=== PATIENT | male | born 1985 | race African-American/Black ===

== ENCOUNTER 2019-06-06 04:27 | Emergency (ER) | payer OTHER ==
[2019-06-06 05:02] LABS: AMP/METHAMP POSITIVE (Negative); BARBITURATES Negative (Negative); BENZODIAZEPINES Negative (Negative); COCAINE Negative (Negative); METHADONE Negative (Negative); OPIATES Negative (Negative); PCP Negative (Negative)
== END 2019-06-06 05:14 | disposition left against medical advice (07) ==
LOC: ER 04:27
PROVIDERS: Emergency Medicine
DX: F15.90 Other stimulant use, unspecified, uncomplicated (principal); Z88.0 Allergy status to penicillin